=== PATIENT | female | born 1965 | race Caucasian/White ===

== ENCOUNTER → 2019-12-20 12:06 | Outpatient (BNVA) | payer OTHER, SELFPAY | PROVIDERS: Family Provider Nurse Practitioner; PCP Nurse Practitioner; Visit Provider Nurse Practitioner | DX: I10 Essential (primary) hypertension (principal); M54.16 Radiculopathy, lumbar region; M79.7 Fibromyalgia | CPT/HCPCS: 80053; 80061 ==

== ENCOUNTER 2020-01-10 10:31 | Outpatient (CLI) | payer OTHER, SELFPAY ==
[2020-01-10 13:16] LABS: Estmated Average Glucose 123; Hemoglobin A1C 5.9 % (4.0-6.0)
== END 2020-01-10 10:32 | disposition home or self-care (01) ==
LOC: LAB 10:35
PROVIDERS: PCP Nurse Practitioner; Visit Provider Nurse Practitioner
DX: R73.09 Other abnormal glucose (principal)
CPT/HCPCS: 83036

== ENCOUNTER 2020-01-24 09:40 | Outpatient (CLI) | payer OTHER, SELFPAY | END 2020-01-24 09:41 | disposition home or self-care (01) | LOC: LAB 09:42 | PROVIDERS: PCP Nurse Practitioner; Visit Provider Prevention Professional | DX: D47.09 Other mast cell neoplasms of uncertain behavior (principal) | CPT/HCPCS: 36415; 83520 ==

== ENCOUNTER → 2020-07-24 10:03 | Outpatient (BNVA) | payer OTHER, SELFPAY | PROVIDERS: PCP Nurse Practitioner; Visit Provider Nurse Practitioner | DX: I10 Essential (primary) hypertension (principal); K59.09 Other constipation; M79.7 Fibromyalgia; M54.16 Radiculopathy, lumbar region | CPT/HCPCS: 80053; 80061; 85025; 85651; 86140 ==

== ENCOUNTER → 2021-02-17 16:26 | Outpatient (BNVA) | payer OTHER, SELFPAY | PROVIDERS: PCP Nurse Practitioner; Visit Provider Nurse Practitioner | DX: Z92.89 Personal history of other medical treatment (principal); I10 Essential (primary) hypertension; K59.09 Other constipation | CPT/HCPCS: 71046 ==

== ENCOUNTER 2021-03-11 12:04 | Outpatient (CLI) | payer OTHER, SELFPAY ==
[2021-03-11 12:35] LABS: Estmated Average Glucose 114; Hemoglobin A1C 5.6 % (4.0-6.0)
== END 2021-03-11 12:05 | disposition home or self-care (01) ==
LOC: LAB 12:11
PROVIDERS: PCP Nurse Practitioner; Visit Provider Nurse Practitioner
DX: R73.09 Other abnormal glucose (principal)
CPT/HCPCS: 83036

== ENCOUNTER → 2021-09-25 11:16 | Outpatient (BNVA) | payer OTHER, SELFPAY | PROVIDERS: PCP Nurse Practitioner; Visit Provider Nurse Practitioner | DX: I10 Essential (primary) hypertension (principal) | CPT/HCPCS: 80053; 80061 ==

== ENCOUNTER → 2022-05-17 09:41 | Outpatient (BNVA) | payer OTHER, SELFPAY | PROVIDERS: PCP Nurse Practitioner; Visit Provider Nurse Practitioner | DX: I10 Essential (primary) hypertension (principal); E66.3 Overweight; E55.9 Vitamin D deficiency, unspecified | CPT/HCPCS: 80053; 80061; 82306 ==

== ENCOUNTER → 2022-11-08 08:32 | Outpatient (BNVA) | payer OTHER, SELFPAY | PROVIDERS: PCP Nurse Practitioner; Visit Provider Nurse Practitioner | DX: E78.2 Mixed hyperlipidemia (principal) | CPT/HCPCS: 80053; 80061; 83520 ==

== ENCOUNTER 2023-01-05 07:06 | Outpatient (CLI) | payer OTHER, SELFPAY ==
--- NOTE | 2023-01-05 07:15 | USCV_ITS ---
Kinjal Gray Age: 57 Gender: F : 1965 Exam Date: 01/05/2023 07:19 Ordering Phys: Edison Kim Technologist: Exam Location: [facility] [place] Indication: claudication Risk Factors: smokers Previous Vascular Surgery: RIGHT LEFT BP: 200.0 / 105.00 BP: 200.0/ 105.00 0 0 Waveform Velocity (cm/s) Velocity (cm/s) Waveform Triphasic 172.5 Iliac Prox 126.2 Triphasic Triphasic 155.4 Iliac Mid 135.4 Triphasic Triphasic 124.3 Iliac Distal 132.8 Triphasic Triphasic 118.0 INSIGHTS ANALYST 107.8 Triphasic Triphasic 98.1 SFA Prox 130.1 Triphasic Triphasic 102.5 SFA Mid 140.7 Triphasic Triphasic 95.3 SFA Dist 110.4 Triphasic Triphasic 47.4 POP 66.7 Biphasic Biphasic 54.0 PLACEMENT INTERVIEWER 97.4 Biphasic Biphasic 63.8 DPA 73.5 Biphasic CARLOS 1.0 1.0 FINDINGS Near normal arterial Doppler waveforms bilaterally Normal Doppler flow velocities bilaterally Resting CARLOS 1.0 bilaterally CONCLUSIONS Normal resting ABIs bilaterally Near normal arterial Doppler waveforms and velocities No evidence of any significant arterial obstruction, based on the above findings. Dr Cecilia Wesley MD [facility] (Electronically Signed) Final Date: 05 January 2023 13:35 S
== END 2023-01-05 07:07 | disposition home or self-care (01) ==
PROVIDERS: PCP Nurse Practitioner; Visit Provider Nurse Practitioner
DX: I73.9 Peripheral vascular disease, unspecified (principal); F17.200 Nicotine dependence, unspecified, uncomplicated
CPT/HCPCS: 93925

== ENCOUNTER → 2023-05-09 15:52 | Outpatient (BNVA) | payer OTHER, SELFPAY | PROVIDERS: PCP Nurse Practitioner; Visit Provider Nurse Practitioner | DX: I10 Essential (primary) hypertension (principal); M79.7 Fibromyalgia; Z23 Encounter for immunization | CPT/HCPCS: 80053; 80061; 85651; 86140 ==

== ENCOUNTER → 2023-12-12 09:30 | Outpatient (BNVA) | payer OTHER, SELFPAY | PROVIDERS: PCP Nurse Practitioner; Visit Provider Nurse Practitioner | DX: I10 Essential (primary) hypertension (principal) | CPT/HCPCS: 80053; 80061; 86140 ==

== ENCOUNTER 2023-12-30 07:30 | Outpatient (CLI) | payer OTHER, SELFPAY ==
--- NOTE | 2023-12-30 07:30 | MM_ITS ---
WS: [id number] BILATERAL 3D TOMOSYNTHESIS DIGITAL SCREENING MAMMOGRAPHY WITH CAD CLINICAL INFORMATION: Z12.31 - Encounter for screening mammogram for malignant ... HISTORY: Screening mammogram. No current complaints. COMPARISON: 2021 TECHNIQUE: Bilateral CC and MLO views. FINDINGS: Bilateral breast implants appear stable and intact. Stable appearing ovoid nodule anterior LEFT breast just lateral to the nipple previously demonstrated to represent breast cyst. This is pres ent dating back to 2013. Incidental benign calcification LEFT breast. The breasts are composed of heterogeneous fibroglandular density tissue, which can limit the detectio n of small underlying mass lesions. No suspicious mass, asymmetry, calcifications, or architectural d istortion. No evidence of malignancy. MM/[place] [id number] IMPRESSION: BI-RADS: 2-Benign FOLLOW UP: 1 Year Follow-up Recommend return to annual screening mammography.
== END 2023-12-30 07:31 | disposition home or self-care (01) ==
PROVIDERS: PCP Nurse Practitioner; Visit Provider Nurse Practitioner
DX: Z12.31 Encounter for screening mammogram for malignant neoplasm of breast (principal); N63.42 Unspecified lump in left breast, subareolar; Z98.82 Breast implant status; R92.323 Mammographic fibroglandular density, bilateral breasts
CPT/HCPCS: 77063; 77067

== ENCOUNTER 2024-01-06 07:00 | Outpatient (CLI) | payer OTHER, SELFPAY ==
--- NOTE | 2024-01-06 07:00 | USR_ITS ---
PROCEDURE INFORMATION: Exam: US Retroperitoneal; Complete; Kidneys and Bladder Exam date and time: 01/06/2024 7:01 AM Age: 58 years old Clinical indication: Condition or disease; Other: Essential (primary) hypertension; Additional info: I10 - essential (primary) hypertension TECHNIQUE: Imaging protocol: Real-time ultrasound of the retroperitoneum with image documentation. Complete exam focused on the kidneys and bladder. COMPARISON: No relevant prior studies available. FINDINGS: Right kidney: Normal. No stones. No hydronephrosis. Left kidney: Normal. No stones. No hydronephrosis. Urinary bladder: Unremarkable. US/US renal BI* [id number] IMPRESSION: Unremarkable kidneys and bladder.
== END 2024-01-06 07:01 | disposition home or self-care (01) ==
PROVIDERS: PCP Nurse Practitioner; Visit Provider Nurse Practitioner
DX: I10 Essential (primary) hypertension (principal)
CPT/HCPCS: 76770; 80053; 80061; 86140

== ENCOUNTER 2024-06-01 06:42 | Outpatient (CLI) | payer OTHER, SELFPAY ==
--- NOTE | 2024-06-01 06:46 | USCV_ITS ---
Kinjal Gray Age: 58 Gender: F : 1965 Exam Date: 06/01/2024 07:11 Ordering Phys: Edison Kim Technologist: Larry Hines [place] [facility] [place]: HTN BP: 168 / 88 HR: 104 Rhythm: Sinus Technical Quality: Adequate MEASUREMENTS (Male / Female) Normal Values 2D ECHO LV Diastolic Diameter PLAX 4.3 cm 4.2 - 5.9 / 3.9 - 5.3 cm IVS Diastolic Thickness 1.9 cm 0.6 - 1.0 / 0.6 - 0.9 cm IVS Systolic Thickness 2.0 cm LVPW Diastolic Thickness 1.6 cm 0.6 - 1.0 / 0.6 - 0.9 cm LVPW Systolic Thickness 1.9 cm LVOT Diameter 2.0 cm LV Ejection Fraction 2D Teich 64.7 % LV Ejection Fraction MOD 4C 61.7 % LV Ejection Fraction MOD 2C 58.1 % LV Ejection Fraction 2C AL 59.5 % LA Diameter 3.3 cm RA Systolic Volume 4C AL 34.8 ml RA Systolic Volume 4C MOD 34.4 ml LA Sys Volume AL 31.8 cm cubed LA Sys Volume Index AL 16.1 cm cubed/m squared Aorta at Sinotubular Diameter 2.2 cm IVC Diameter 2.1 cm M-MODE LA Ao Ratio MM 1.3 AV Cusp Separation MM 1.8 cm DOPPLER AV Peak Velocity 135.3 cm/s LVOT Peak Velocity 103.0 cm/s AV Area Cont Eq vti 2.2 cm squared AV Area Cont Eq pk 2.4 cm squared MV Peak Velocity 100.0 cm/s MV Area PHT 3.9 cm squared Mitral E to A Ratio 0.9 TV Peak Velocity 263.7 cm/s TR Peak Velocity 317.5 cm/s TR Peak Gradient 40.3 mmHg TR Mean Velocity 241.0 cm/s TR Mean Gradient 25.9 mmHg TR Velocity Time Integral 87.6 cm PV Peak Velocity 91.0 cm/s RV Ejection Time 0.3 s FINDINGS Left Ventricle Left ventricle is normal in size. LV systolic function is normal with EF of 55 to 60%. No regional wall motion abnormalities are seen. Grade 1 diastolic dysfunction. Right Ventricle Normal in size and function Right Atrium Normal in size Left Atrium Normal in size Mitral Valve Structurally normal mitral valve. Trace mitral regurgitation. Aortic Valve Structurally normal aortic valve. No significant stenosis or regurgitation Tricuspid Valve Mild tricuspid regurgitation. Insufficient TR jet to calculate RVSP Pulmonic Valve Trace pulmonic regurgitation. Pericardium Normal Aorta Normal in size IVC Appears to be normal CONCLUSIONS LV systolic function is normal with EF of 55 to 60%. Grade 1 diastolic dysfunction. Trace mitral regurgitation Mild tricuspid regurgitation Trace pulmonic regurgitation No comparison studies are available. Juan Carlos Walker MD (Electronically Signed) Final Date: 01 June 2024 14:34 S
== END 2024-06-01 06:43 | disposition home or self-care (01) ==
LOC: RAD 06:43
PROVIDERS: PCP Nurse Practitioner; Visit Provider Nurse Practitioner
DX: I50.30 Unspecified diastolic (congestive) heart failure (principal); I10 Essential (primary) hypertension
CPT/HCPCS: 80053; 80061; 85025; 93306

== ENCOUNTER → 2024-07-05 13:28 | Outpatient (BNVA) | payer OTHER, SELFPAY | PROVIDERS: PCP Nurse Practitioner; Visit Provider Internal Medicine | DX: R07.9 Chest pain, unspecified (principal); I10 Essential (primary) hypertension; I73.9 Peripheral vascular disease, unspecified; E78.2 Mixed hyperlipidemia | CPT/HCPCS: 93005 ==

== ENCOUNTER 2024-07-20 06:39 | Outpatient (CLI) | payer OTHER, SELFPAY ==
[2024-07-20 06:43] VITALS: BMI 31.7
--- NOTE | 2024-07-20 06:46 | ECG_ITS ---
Writer[employer] Test Date: 2024-07-20 Pat Name: Kinjal Gray Department: Room: Gender: Female Hand Nailer: : 1965 Requested By: Juan Carlos Walker Order Number: [id number] Zoya MD: Juan Carlos Walker M.D. Interpretive Statements EXERCISE MIBI : EXERCISE DATA: The patient was exercised by Chuck protocol. Baseline heart rate was 101 beats per minute. Baseline blood pressure was 164/101millimeters of mercury. Maximal predicted heart rate was 163 beats per minute. Maximum heart rate achieved was 163, which was 100% of the maximum predicted heart rate. Maximum blood pressure was 203/78 millimeters of mercury. Total exercise time was 5 minutes ad 31 seconds. Maximum METs achieved was 7.0. The reason for ending the test was completion of protocol. The patient complained of shortness of breath during the stress test, which then resolved at the end of the test. ELECTROCARDIOGRAM: BASELINE: Showed sinus rhythm, normal axis, no significant ST-T changes at the baseline noted. [] EXERCISE: At the peak exercise level, [] No significant ST-T changes suggestive of ischemia noted. [] RECOVERY: During the recovery period, heart rate dropped appropriately. No significant ST-T changes in the recovery suggestive of ischemia noted. [] CONCLUSION: 1. Exercise capacity is fair. 2. Heart rate response was appropriate 3. Blood pressure response was appropriate 4. Symptoms not suggestive of ischemia. 5. Electrocardiogram portion of the stress test was not suggestive of ischemia. 6. Nuclear scan will be documented separately. Electronically Signed On 07-28-2024 23:22:17 CEREAL CHEMIST by Juan Carlos Walker M.D. [email or web address]
--- NOTE | 2024-07-20 06:47 | NMCV_ITS ---
NM pranav perf SPECT r/s* [id number] Kinjal Gray Age: 58 Gender: F : 1965 Exam Date: 07/20/2024 06:47 Ordering Phys: Juan Carlos Walker M.D ([email or web address]) Technologist: TAMMY Garcia Exam Location: [facility] Indications: cp STRESS TEST Please see separate stress test report in [facility] for full findings IMAGE PROTOCOL Rest/Stress 1 Exercise Day Radiopharmaceutical Dose (mCi) Administration Site Administered by Rest: Tc-99m 10.8 IV TAMMY Garcia Sestamibi Stress:Tc-99m 32.8 IV TAMMY Garcia Sestamibi Rest: 20-Jul-2024 60 Discovery 630 Stress: 20-Jul-2024 15 Discovery 630 Radiopharmaceutical was injected at 95 % maximum heart rate. Images obtained in supine and prone position. SPECT RESULTS Technical Quality: Good Raw Data Analysis: Normal Image Corrections: No attenuation or motion correction applied Summed Stress Score: 0 Summed Rest Score: 0 Summed Difference Score: 0 PERFUSION FINDINGS SPECT images demonstrate homogeneous tracer distribution throughout the myocardium. FUNCTIONAL RESULTS (calculated via Gated SPECT) Stress Image LV EF (%): 80 Stress EDV (mL):66 TID: 0.79 Stress ESV (mL):13 FUNCTIONAL FINDINGS: There is normal left ventricular systolic function. IMPRESSIONS 1. Normal myocardial perfusion imaging with no evidence of ischemia 2. LV systolic function is normal Juan Carlos Walker MD (Electronically Signed) Final Date: 20 July 2024 20:25 S
[2024-07-20 08:42] VITALS: BP 126/74; PULSE 99
== END 2024-07-20 06:40 | disposition home or self-care (01) ==
LOC: CDL 06:40
PROVIDERS: PCP Nurse Practitioner; Visit Provider Internal Medicine
DX: R07.9 Chest pain, unspecified (principal); R06.02 Shortness of breath
CPT/HCPCS: 36415; 78452; 93017; A9500